=== PATIENT | male | born 1980 | race Caucasian/White ===

== ENCOUNTER 2018-01-21 18:37 | Emergency (ER) | payer MEDICARE, OTHER ==
[~2018-01-21] VITALS: Ht 177.8 cm; Wt 108.9 kg
[~2018-01-21 18:37] MED LIST: AMOXICILLIN500 MG PO; CODEINE-GUAIFE473 ML PO; LAMICTAL200 MG PO; NORCO 5-325 TA1 EACH PO; SERTRALINE HCL100 MG PO; ZITHROMAX250 MG PO
[2018-01-21] MEDS ORDERED: DEXTROAMP-AMPHE15 MG PO (18:46)
[2018-01-21] MEDS ORDERED: CLONIDINE HCL0.1 MG PO (18:46)
--- NOTE | 2018-01-22 17:21 | EKG ---
[facility] [address] [place], [place] [address] Signed Normal sinus rhythm with sinus arrhythmia Normal ECG No previous ECGs available Confirmed by JC TEJADA DO ([id number]) on 01/22/2018 5:21:38 PM Electronically Signed By: JC TEJADA DO 01/22/18 1721 PATIENT NAME: EVANGELISTA FRIAS JR Electrocardiogram DATE OF : 76 PHYSICIAN: CJ TEJADA DO REPORT #: [id number] REPORT IS CONFIDENTIAL AND NOT TO BE RELEASED WITHOUT AUTHORIZATION
== END 2018-01-21 23:26 | disposition home or self-care (01) ==
LOC: ED 18:37
DX: S29.011A Strain of muscle and tendon of front wall of thorax, initial encounter (principal); S27.818A Other injury of esophagus (thoracic part), initial encounter; Z79.899 Other long term (current) drug therapy; X58.XXXA Exposure to other specified factors, initial encounter
CPT/HCPCS: 71046; 80053; 84484; 85025; 93005; 93010; 99285

== ENCOUNTER 2018-10-07 10:17 | Emergency (ER) | payer MEDICARE, OTHER ==
[~2018-10-07] VITALS: Ht 177.8 cm; Wt 117.0 kg
[~2018-10-07 10:17] MED LIST changes: +CLONIDINE HCL0.1 MG PO; +DEXTROAMP-AMPHE15 MG PO
[2018-10-07] MEDS ORDERED: ADDERALL 10 MG10 MG PO (10:36)
== END 2018-10-07 12:57 | disposition home or self-care (01) ==
LOC: ED 10:17
DX: S91.311A Laceration without foreign body, right foot, initial encounter (principal); J45.909 Unspecified asthma, uncomplicated; F90.9 Attention-deficit hyperactivity disorder, unspecified type; Z79.899 Other long term (current) drug therapy; W25.XXXA Contact with sharp glass, initial encounter
CPT/HCPCS: 73650; 99283

== ENCOUNTER 2018-11-05 21:30 | Emergency (ER) | payer MEDICARE, OTHER ==
[~2018-11-05] VITALS: Ht 177.8 cm; Wt 113.4 kg
[~2018-11-05 21:30] MED LIST changes: +ADDERALL 10 MG10 MG PO
--- OUTSIDE RECORDS SUMMARY | 2018-11-05 21:32 | XMS ---
PreManage Notification: EVANGELISTA FRIAS Security [employer] Events No recent Security Events currently on file CRITERIA MET - [facility] - 2 Visits in 30 Days CARE PROVIDERS SCOTTIE WHITMORE Physician Director Of Strategic Partnerships Current PHONE: [phone] [place] has no Care Guidelines for this patient. Tori VISIT COUNT (12 MO.) 3 [facility] TOTAL 3 NOTE: Visits indicate total known visits. ED/UCC VISIT TRACKING (12 MO.) 11/05/2018 21:31 [facility] TYPE: Emergency COMPLAINT: - TOOTH PAIN 10/07/2018 10:19 [facility] [place] TYPE: Emergency COMPLAINT: - RIGHT FOOT PAIN/INJURY DIAGNOSES: - Contact with sharp glass, initial encounter - Laceration without foreign body, right foot, initial encounter - Attention-deficit hyperactivity disorder, unspecified type - Unspecified asthma, uncomplicated - Other mcc (current) drug therapy 01/21/2018 18:37 [facility] [place] TYPE: Emergency COMPLAINT: - CHEST TIGHTNEST/BREATHING PAIN DIAGNOSES: - Strain of muscle and tendon of front wall of thorax, initial encounter - Other superintendent [employer] (current) drug therapy - Other chest pain - Other injury of esophagus (thoracic part), initial encounter - Exposure to other specified factors, initial encounter INPATIENT VISIT TRACKING (12 MO.) No inpatient visits to display in this time frame [email or web address]
[2018-11-05] MEDS ORDERED: AMPHETAMINE SALT5 MG PO (22:10)
[2018-11-05] MEDS ORDERED: ONDANSETRON HCL8 MG PO (22:11)
[2018-11-05] MEDS ORDERED: PENICILLIN V P500 MG PO (23:27)
== END 2018-11-05 23:38 | disposition home or self-care (01) ==
LOC: ED 21:30
DX: K02.9 Dental caries, unspecified (principal); F90.9 Attention-deficit hyperactivity disorder, unspecified type; Z79.899 Other long term (current) drug therapy
CPT/HCPCS: 99282

== ENCOUNTER 2025-05-09 14:51 | Emergency (ER) | payer MEDICARE, OTHER ==
[~2025-05-09] VITALS: Ht 175.3 cm; Wt 106.2 kg
[~2025-05-09 14:51] MED LIST changes: +AMPHETAMINE SALT5 MG PO; +CEPHALEXIN500 M1 PO; +KEFLEX500 MG PO; +OMEPRAZOLE20 M1 PO; +ONDANSETRON HCL8 MG PO; +PENICILLIN V P500 MG PO; +PRAZOSIN HCL2 MG PO; +SUMATRIPTAN SUC50 MG PO; +TOPIRAMATE25 MG PO; +TRIAMCINOLONE A15 G3 TOP; +VITAMIN D21250 MCG PO; +VYVANSE40 MG PO
[2025-05-09] MEDS ORDERED: SILDENAFIL20 MG PO (15:36)
[2025-05-09] MEDS ORDERED: LISDEXAMFETAMIN50 MG PO (15:36)
[2025-05-09 15:44] LABS: BASOPHILS 0.9 % (0.2-1.2); EOSINOPHILS 2.0 % (0.8-7.0); LYMPHOCYTES 12.1 % (21.8-53.1); MCH 30.5 PG (25.7-32.2); MCHC 33.5 g/dL (32.3-36.5); MCV 90.9 fL (79.0-92.2); MONOCYTES 6.5 % (5.3-12.2); NEUTROPHILS 78.2 % (34.0-67.9); RBC 5.41 M/uL (4.63-6.08)
[2025-05-09 16:10] LABS: ALT (SGPT) 50.0 U/L (14-59); AST (SGOT) 23.0 U/L (15-37); GLOMERULAR FILTRATION RATE,EST 75.0 mL/min (>60); PROTEIN, TOTAL 7.3 g/dL (6.4-8.2); UREA NITROGEN 12.0 mg/dL (7-18)
[2025-05-09 16:36] LABS: BLOOD/HGB, URINE NEGATIVE (Negative); KETONE, URINE NEGATIVE (Negative); LEUK ESTERASE, URINE NEGATIVE (negative); NITRITE, URINE NEGATIVE (negative)
[2025-05-09] MEDS ORDERED: AMOX TR-K CLV1 EAC1 PO (16:56)
[2025-05-09] MEDS ORDERED: MECLIZINE HCL25 MG PO (16:56)
[2025-05-09] MEDS ORDERED: MECLIZINE HCL 25 MG TAB PO ONE (17:00)
[2025-05-09] MEDS ORDERED: AMOXICILLIN/CLAVULANATE K 875 MG HOME.PACK PO ONE (17:00)
[2025-05-09 17:14] VITALS: BP 131/72
--- NOTE | 2025-05-10 22:14 | EKG ---
[facility] [address] [place] [address] Signed Normal sinus rhythm Minimal voltage criteria for LVH, may be normal variant ( R in aVL ) Inferior infarct , age undetermined Abnormal ECG When compared with ECG of 21-JAN-2018 18:52, Inferior infarct is now present Inverted T waves have replaced nonspecific T wave abnormality in Inferior leads Confirmed by Dorys Tillman MD () on 05/10/2025 10:13:47 PM Electronically Signed By: DORYS TILLMAN MD 05/10/25 2214 PATIENT NAME: EVANGELISTA FRIAS Electrocardiogram DATE OF : 76 PHYSICIAN: DORYS TILLMAN MD REPORT #: [id number] REPORT IS CONFIDENTIAL AND NOT TO BE RELEASED WITHOUT AUTHORIZATION
== END 2025-05-09 17:15 | disposition home or self-care (01) ==
LOC: ED 14:51
DX: H66.92 Otitis media, unspecified, left ear (principal); R42 Dizziness and giddiness; J45.909 Unspecified asthma, uncomplicated; Z88.8 Allergy status to other drugs, medicaments and biological substances
CPT/HCPCS: 36415; 80053; 81003; 85025; 93005; 93010; 99284; A9270